=== PATIENT | male | born 1975 | race Hispanic/Latino ===

== ENCOUNTER 2022-05-14 13:49 | Emergency (ER) | payer BC ==
[~2022-05-14] VITALS: Ht 175.3 cm; Wt 83.9 kg
[2022-05-14 13:50] VITALS: TEMP 98
[2022-05-14 16:18] VITALS: BP 136/71
== END 2022-05-14 16:22 | disposition home or self-care (01) ==
LOC: ED 13:49
DX: S61.211A Laceration without foreign body of left index finger without damage to nail, initial encounter (principal); W26.8XXA Contact with other sharp object(s), not elsewhere classified, initial encounter; Y92.89 Other specified places as the place of occurrence of the external cause
CPT/HCPCS: 90471; 90715; 99282; J2001